=== PATIENT | female | born 1965 | race Caucasian/White ===

== ENCOUNTER 2023-12-22 14:01 | Emergency (ER) | payer SELFPAY ==
[2023-12-22 14:14] VITALS: BP 143/76; PULSE 80; RESP 16; TEMP 36.7; O2SAT 99
--- NOTE | 2023-12-22 14:38 | ED_ITS ---
HPI - URI/Sore Throat General Chief Complaint: Upper Respiratory Infection Stated Complaint: sore throat,earache,head pressure Time Seen by Provider: 12/22/23 14:28 Source: patient and RN notes reviewed Mode of arrival: ambulatory Limitations: no limitations History of Present Illness HPI Narrative: Patient presents today with 2 week history of left ear pain, itching with a 1+ week history of sore throat, frontal headache and now reports bilateral ear pain and discomfort. Denies cough fever. Currently rates her pain /10 and has been using Claritin and Tylenol with some relief. Related Data Home Medications Medication Instructions Recorded Confirmed albuterol 90 mcg/actuation aerosol See Rx Instructions .Route .COMPLEX 12/22/23 12/22/23 inhaler Allergies Allergy/AdvReac Type Severity Reaction Status Date / Time No Known Allergies Allergy Verified 12/22/23 14:32 Review of Systems Review of Systems: CONSTITUTIONAL: Denies body aches, fever, chills, or sweats. EYES: Denies visual changes, redness, or discharge. ENT: Denies rhinorrhea, congestion. + sore throat, bilateral ear pain CARDIOVASCULAR: Denies chest pain, palpitations, or edema. RESPIRATORY: Denies cough or dyspnea. GASTROINTESTINAL: Denies abdominal pain, nausea, vomiting, or diarrhea. GENITOURINARY: Denies dysuria or hematuria. SKIN: Denies rash, itching, or wounds. MUSCULOSKELETAL: Denies back pain, joint pain, or myalgia. NEUROLOGIC: Denies numbness, tingling, or weakness.+ frontal headache PSYCH: Denies depression or anxiety. PMFSH Social History Social History (Updated 12/22/23 @ 14:39 by Christa Cesar, [facility], ) Smoking status: Current every day smoker Tobacco type: cigarettes Comments At time of signature, I have reviewed and agree with nursing past medical, surgical, social and family history unless otherwise noted. Please see nursing chart for further information. There is no relevant family history pertinent to the presenting complaint Exam 2 Narrative: GENERAL: Mildly ill-appearing, well-nourished, and in no acute distress. HEAD: Normocephalic, atraumatic. EYES: EOMI. No redness or drainage. Conjunctivae normal. ENT: Mucous membranes pink and moist. Nares mildly congested. No rhinorrhea. TMs normal bilaterally. Throat mildly erythematous without edema or exudate. Uvula midline. Bilateral frontal sinus tenderness. NECK: Normal AROM. Supple. No lymphadenopathy. CHEST: No respiratory distress. Clear to auscultation. HEART: Regular rate and rhythm. No murmur appreciated. EXTREMITIES: Normal range of motion. No edema. SKIN: Warm, dry, no rash. Capillary refill normal. Normal skin turgor. NEURO: No focal deficits. Alert and oriented x3. Gait steady. PSYCH: Normal affect. No signs of depression or anxiety. Course Course Level of Care: Express Care Visit Vital Signs Vital signs: Vital Signs Temperature 98.1 F 12/22/23 14:14 Pulse Rate 80 12/22/23 14:14 Respiratory Rate 16 12/22/23 14:14 Blood Pressure 143/76 H 12/22/23 14:14 Pulse Oximetry 99 12/22/23 14:14 Oxygen Delivery Room Air 12/22/23 14:14 Temperature 98.1 F 12/22/23 14:14 Pulse Rate 80 12/22/23 14:14 Respiratory Rate 16 12/22/23 14:14 Blood Pressure 143/76 H 12/22/23 14:14 Pulse Oximetry 99 12/22/23 14:14 Oxygen Delivery Room Air 12/22/23 14:14 Reviewed MDM - URI/Sore Throat MDM Narrative Medical decision making narrative: Patient will be treated with Augmentin for sinusitis. Instructed to start Flonase as well for ear pressure. Anticipatory guidance given. Differential Diagnosis Differential diagnosis: Likely upper respiratory infection, otitis media, sinusitis, viral infection and other (Otitis externa, ruptured TM, serous otitis) Critical Care Time Critical Care Time Critical Care Time: No Discharge Plan Discharge Clinical Impression: Sinusitis Qualifiers: Sinusitis location: frontal Chronicity: acute Recurrence: non-recurrent Qualified Code(s): J01.10 - Acute frontal sinusitis, unspecified Patient Disposition: Home, Self-Care Condition: Stable Instructions: Antibiotic Form, Sinusitis (ED) Additional Instructions: Please take the Augmentin as prescribed until gone. Consider starting an intranasal steroid such as Flonase. Follow-up with your PCP next week if symptoms are not improving. Your blood pressure was elevated above 120/80 today at Urgent Care. This puts you above the threshold for follow up. Please schedule a followup visit with your personal physician as soon as possible, for further evaluation and treatment. Even blood pressure exceeding 120/80 may indicate pre-hypertension. Prescriptions: New amoxicillin-pot clavulanate 875-125 mg tablet 1 tablet PO Q12H 7 Days Qty: 14 0RF No Action albuterol 90 mcg/actuation Aerosol See Rx Instructions .ROUTE .COMPLEX Rx Instructions: Rx Follow-up/Referrals: PHYSICIAN,PLATE CONDITIONER [Primary Care Provider] - Time of Disposition: 14:41
== END 2023-12-22 14:45 | disposition home or self-care (01) ==
PROVIDERS: Emergency Provider Nurse Practitioner
DX: J01.10 Acute frontal sinusitis, unspecified (principal); F17.210 Nicotine dependence, cigarettes, uncomplicated
CPT/HCPCS: 99203; G0463

== ENCOUNTER 2024-02-08 13:44 | Emergency (ER) | payer SELFPAY ==
[2024-02-08 13:56] VITALS: BP 149/78; PULSE 79; RESP 19; TEMP 36.1; O2SAT 99
--- NOTE | 2024-02-08 13:56 | ED.URI ---
HPI - URI/Sore Throat General Chief Complaint: Ear Stated Complaint: pressure in head,ringing/humming ears,balance off Time Seen by Provider: 02/08/24 13:58 Source: patient and RN notes reviewed Mode of arrival: ambulatory Limitations: no limitations History of Present Illness HPI Narrative: 59-year-old female presents with concern of for your pressure, pain, ringing in the ears, feeling like her balance is off. She reports she was treated for sinusitis with an antibiotic about 2 weeks ago her symptoms had mostly resolved except for the rain in the ears but now many of the symptoms are back. She is denying sinus pain. Denies fever or drainage from the ear MD elicited complaint: other (ear pain) Related Data Home Medications ?Medication ?Instructions ?Recorded ?Confirmed ?Last Taken ?Type albuterol 90 mcg/actuation aerosol See Rx Instructions .Route .COMPLEX 12/22/23 12/22/23 Unknown History inhaler Allergies Allergy/AdvReac Type Severity Reaction Status Date / Time No Known Allergies Allergy Verified 02/08/24 14:47 Review of Systems Review of Systems: CONSTITUTIONAL: Denies malaise, chills, sweats, or fever. EYES: Denies visual changes, redness, or discharge. ENT: Denies rhinorrhea, congestion, sinus pain, and sore throat. Reports bilateral ear pain, pressure, ringing in the ears, pressure in her head CARDIOVASCULAR: Denies chest pain, palpitations, or edema. RESPIRATORY: Denies cough. Denies dyspnea. GASTROINTESTINAL: Denies abdominal pain, nausea, vomiting, diarrhea SKIN: Denies rash or itching. MUSCULOSKELETAL: Denies myalgia. NEUROLOGIC: Denies headache. All systems reviewed & are unremarkable except as noted in HPI and below PMFSH Social History Social History (Updated 12/22/23 @ 14:39 by Christa Cesar, [facility], ) Smoking status: Current every day smoker Tobacco type: cigarettes Comments At time of signature, agree with nursing past medical, surgical, social and family history. There is no relevant family history pertinent to the presenting complaint Exam Narrative: GENERAL: Well-appearing, well-nourished, and in no acute distress. HEAD: Normocephalic EYES: PERRLA, conjunctivae clear ENT: Nares clear. Mucous membranes moist. TM pearly larson with dull light reflex bilaterally; no tragal tenderness. Oropharynx not erythematous without lesions. Tonsils not enlarged and without exudate, no drooling, no hoarseness, no trismus, uvula midline. NECK: Supple. No lymphadenopathy CHEST: Clear to auscultation, breath sounds equal. No wheezing, rhonchi, rales, or stridor. No respiratory distress, speaks in full sentences. HEART: Regular rate and rhythm. No murmur heard. SKIN: Warm, dry, no rash. NEURO: Alert and oriented x3. PSYCH: Normal mood and affect Course Course Emergency Course: Patient is aware of diagnosis, understands and agrees to treatment plan. Anticipatory guidance given. Patient agrees to follow-up as directed and is aware of reasons to seek care at the emergency department. Portions of this record may have been created with voice recognition software Level of Care: Express Care Visit Vital Signs Vital signs: Vital Signs Temperature 97 F L 02/08/24 13:56 Pulse Rate 79 02/08/24 13:56 Respiratory Rate 19 02/08/24 13:56 Blood Pressure 149/78 H 02/08/24 13:56 Pulse Oximetry 99 02/08/24 13:56 Oxygen Delivery Room Air 02/08/24 13:56 Temperature 97 F L 02/08/24 13:56 Pulse Rate 79 02/08/24 13:56 Respiratory Rate 19 02/08/24 13:56 Blood Pressure 149/78 H 02/08/24 13:56 Pulse Oximetry 99 02/08/24 13:56 Oxygen Delivery Room Air 02/08/24 13:56 Reviewed. MDM - URI/Sore Throat MDM Narrative Medical decision making narrative: Differential diagnosis considered: Esquivel virus, strep pharyngitis, allergic rhinitis, upper respiratory tract infection, sinusitis, rhinosinusitis, nasopharyngitis. viral pharyngitis, otitis media, otitis externa, pneumonia, bronchitis, viral cough syndrome, viral syndrome, and influenza. Exam findings show no acute concerns or changes; patient is non-toxic appearing and is in no distress. Patient is appropriate for outpatient treatment and follow-up. Lab Data Attestation: I reviewed the patient's lab results. Critical Care Time Critical Care Time Critical Care Time: No Discharge Plan Discharge Clinical Impression: Fluid level behind tympanic membrane of both ears Patient Disposition: Home, Self-Care Condition: Stable Instructions: Fluid In The Ear (Serous Otitis Media) (ED) Additional Instructions: Take medications as prescribed Recommend antihistamine such as Benadryl at night time and Zyrtec or Sneha during the day until symptoms improve Flonase nasal spray, 2 sprays in each nostril once daily until symptoms improve Also, recommend symptomatic treatment includes: rest, fluids, and increase humidity of the air at home. Recommend Acetaminophen as directed on the bottle to reduce fever, pain Please schedule a follow-up visit with your personal physician for further evaluation and treatment within 3-5days. If your symptoms persist, change or worsen significantly before you can contact your personal physician then please, without delay, go to the emergency department for further evaluation. Patient Language: [place] Citizen Prescriptions: New prednisone 20 mg tablet 40 mg PO DAILY 5 Days Qty: 10 0RF No Action albuterol 90 mcg/actuation Aerosol See Rx Instructions .ROUTE .COMPLEX Rx Instructions: Rx amoxicillin-pot clavulanate 875-125 mg tablet 1 tablet PO Q12H 7 Days Qty: 14 0RF Follow-up/Referrals: UNKNOWN,DOCTOR [Primary Care Provider] - Time of Disposition: 14:45
== END 2024-02-08 14:50 | disposition home or self-care (01) ==
PROVIDERS: Emergency Provider Nurse Practitioner
DX: H73.893 Other specified disorders of tympanic membrane, bilateral (principal); F17.210 Nicotine dependence, cigarettes, uncomplicated
CPT/HCPCS: 99213; G0463